=== PATIENT | male | born 1935 | race Caucasian/White ===

== ENCOUNTER 2020-07-05 10:47 | Inpatient (IN) | payer MEDICARE, SELFPAY ==
[2020-07-05] VITALS (21 sets, daily range): BP systolic 120–137; BP diastolic 63–84; PULSE 67–87; RESP 16–23; TEMP 36–36.7; O2SAT 96–100
--- NOTE | 2020-07-05 10:45 | RT.EKG_ITS ---
APPROVED REPORT Exam: Resting ECG Patient Location: E HR:70 bpm ECG Measurements Heart Rate 70 AXIS CA 243 P -14 QRSd 93 QRS -39 QT 419 T 2 QTc 465 Conclusion Sinus rhythm...normal P axis, V-rate 60- 99 Sinus pause...long R-R interval, normal QRSd Prolonged CA interval...CA >220, V-rate 50- 90 I have reviewed and interpreted ECG and agree with software generated interpretation.
--- NOTE | 2020-07-05 10:45 | DI.RAD_ITS ---
EXAM: XR PORTABLE CHEST AP CLINICAL HISTORY: syncope. TECHNIQUE: 2D digital imaging was performed. COMPARISON: No exams were available for comparison FINDINGS: Heart size is normal. The mediastinum is not widened. Lungs are clear. No infiltrates nor obvious pleural effusions. Subtle suggestion of a possible LAD coronary artery stent. IMPRESSION: No acute pulmonary findings on this single AP portable view of the chest.Possible left-sided coronary artery stent. DATA REPOSITORY: RADIATION DOSE DELIVERED:
[2020-07-05 11:14] LABS: Abs Immature Grans 0.03 10^3/uL (0.0-0.06); Absolute Basophil Count 0.03 10^3/uL (0.0-0.2); Absolute Eosinophil Count 0.15 10^3/uL (0.0-0.7); Absolute Lymphocyte Count 2.05 10^3/uL (1.2-3.4); Absolute Monocyte Count 0.73 10^3/uL (0.1-0.8); Basophils % 0.4; HCT 38.9 % (40.0-50.0); HGB 13.3 g/dL (13.5-17.5); Immature Grans % 0.4; Lymphocytes % 27.4; MCHC 34.2 % (32.0-36.0); MCV 93.7 fL (80-95); MPV 12.5 fL (8.0-11.0); Monocytes % 9.7; Neutrophils % 60.1; Nucleated RBC 0 %; Platelet Count 155 10^3/uL (130-400); RBC 4.15 10^6/uL (4.36-5.78); RDW-SD 44.8 fL; WBC 7.49 10^3/uL (4.4-10.8)
--- NOTE | 2020-07-05 11:22 | ED.GENADUL_ITS ---
Discharge Plan Discharge Details Chief Complaint: Chest Pain Admit Date/Time: 07/05/20 11:48 Admit Provider: Abdullahi Jackson Attending Provider: Abdullahi Jackson Primary Care Provider: Unknown,Unknown ED Provider: Sandi Cruz Medical Decision Making Patient does have mild elevation in LFTs, specifically no right upper quadrant tenderness, suspicion for cholecystitis Patient very low suspicion for pulmonary embolism, he is not hypoxic or tachycardic, he is not tachypneic and he has no history of same D-dimer negative BUN mildly elevated, dehydration play a role in his symptoms although he is not experiencing any vasovagal symptoms, his orthostatics were negative His chest pain has resolved, he is currently chest pain-free We will give dose of aspirin Chest x-ray does not show acute pathology, no obvious neurological involvement, alert and oriented x4 with stable vitals throughout his encounter, no abnormal telemetry dysrhythmia noted Patient agreeable to admission at this time Case discussed with Dr. Solomon, admitting hospitalist, agreeable to admission of this patient Differential Diagnosis Differential Diagnosis: Pulmonary embolism, angina, syncope, dysrhythmia Medical Records Medical records reviewed: Yes I reviewed the patient's medical records. Lab Data Lab results reviewed: Yes I reviewed the patient's lab results. ECG Data Prior ECG tracings: available for review HPI This 85-year-old gentleman with past medical history of hypertension, hyperlipidemia, diabetes presents with reports of syncope. He states he went grocery shopping this morning and felt quite well during his experience, however he was walking in the door and developed some pressure in his chest. He denies palpitations. He states that he felt weak and lowered himself to the ground. He was told by his that he passed out for 3 to 4 minutes. He states he was already on the ground when he believes this occurred. When he awoke, he felt well. He states that he did have a stress test he thinks that been 20 years. He denies any history of seizures or seizure-like activity witnessed. EMS states his blood sugar was 200. Denies any current chest discomfort. Did not take his medication prior to arrival. Has not had a syncope work-up in the past. General Date/Time Provider Initiated Documentation: 07/05/20 10:48 . Related Data Home Medications Medication Instructions Recorded Confirmed allopurinol 100 mg PO DAILY 07/05/20 07/05/20 amlodipine 5 mg PO HS 07/05/20 07/05/20 carbidopa-levodopa 1 tab PO Q4H 07/05/20 07/05/20 clopidogrel [Plavix] 75 mg PO DAILY 07/05/20 07/05/20 colchicine [Colcrys] 0.6 mg PO BID 07/05/20 07/05/20 dutasteride 0.5 mg PO DAILY 07/05/20 07/05/20 famotidine 20 mg PO BID 07/05/20 07/05/20 insulin detemir U-100 [Levemir 50 unit SUBCUT QPM 07/05/20 07/05/20 U-100 Insulin] insulin detemir U-100 [Levemir 65 unit SUBCUT QAM 07/05/20 07/05/20 U-100 Insulin] magnesium chloride 84 mg PO BID 07/05/20 07/05/20 metformin 500 mg PO BID 07/05/20 07/05/20 potassium chloride [Klor-Con M20] 20 meq PO BID 07/05/20 07/05/20 pravastatin 40 mg PO QHS 07/05/20 07/05/20 tamsulosin 0.4 mg PO DAILY 07/05/20 07/05/20 Allergies Allergy/AdvReac Type Severity Reaction Status Date / Time Penicillins Allergy Severe Skin Rash Unverified 07/05/20 12:09 General Stated Complaint: Chest Pain KARIN: 2 Review of Systems Narrative: Review of systems obtained x7 aside are indicated in HPI, specifically no seizure-like activity, vomiting, palpitations, shortness of PFSH Social History Smoking/Tobacco Use Status: Former Tobacco Use Smoking risk assessment performed?: Yes Alcohol Intake: current Alcohol Intake frequency: 0-2 drinks per day Alcohol type: wine Drug use: Never Substance use type: does not use Do you feel safe at home: Yes Do you feel safe in your relationship?: Yes Exam Const General: cooperative, comfortable and no acute distress HENMT Head: normal to inspection Mouth: oral mucosae normal Throat: uvula midline Eyes Pupils: PERRL EOM: EOM intact bilaterally Chest Chest: normal inspection of the chest Resp Effort & Inspection: normal respiratory effort Auscultation: clear to auscultation bilaterally Cardio Rate: regular rate Rhythm: regular rhythm GI Inspection: normal to inspection Other: No abdominal bruit or pulsatile mass, nontender abdominal exam Specifically no abdominal tenderness Back/Spine/Pelvis Back: no CVA tenderness Other: No visible evidence of trauma Skin General skin exam: no rashes or lesions noted Neuro General: patient alert and patient oriented x3 Cranial Nerves: CN's II-XI intact bilaterally Cognition: normal cognition Speech: speech normal Gait: normal gait Motor: muscle tone normal throughout Sensory Exam: no sensory deficits noted Other: GCS 15 Extrem Left upper extremity: normal to inspection Other: No calf tenderness or swelling bilaterally Course Vital Signs Vital signs: Vital Signs Temperature 36.6 C 07/05/20 10:52 Pulse 73 07/05/20 10:52 Respiratory Rate 18 07/05/20 10:52 Blood Pressure 122/64 07/05/20 10:52 Pulse Oximetry 100 07/05/20 10:52 Temperature 36.6 C 07/05/20 10:52 Temperature Source Temporal Artery Scan 07/05/20 10:52 Pulse 73 07/05/20 10:52 Respiratory Rate 18 07/05/20 10:59 Respiratory Effort Non-Labored 07/05/20 10:59 Respiratory Depth Normal 07/05/20 10:59 Respiratory Pattern Normal 07/05/20 10:59 Blood Pressure 122/64 07/05/20 10:52 Blood Pressure Position Sitting 07/05/20 10:52 Pulse Oximetry 100 07/05/20 10:52 Oxygen Delivery Method Room Air 07/05/20 10:52 Oxygen Flow Rate 0 07/05/20 10:52 Pain Level 0 07/05/20 10:52 Lab/Test Results Lab/Test Results: Laboratory Tests Range/Units 07/05/20 10:48 WBC (4.4-10.8) 10^3/uL 7.49 RBC (4.36-5.78) 10^6/uL 4.15 L Hgb (13.5-17.5) g/dL 13.3 L Hct (40.0-50.0) % 38.9 L MCV (80-95) fL 93.7 MCH (27.0-33.0) pg 32.0 MCHC (32.0-36.0) % 34.2 RDW (11.8-14.1) % 13.0 Plt Count (130-400) 10^3/uL 155 MPV (8.0-11.0) fL 12.5 H Immature Gran % 0.4 Neutrophils % 60.1 Lymphocytes % 27.4 Monocytes % 9.7 Eosinophils % 2.0 Basophils % 0.4 Nucleated RBC % % 0 Absolute Neutrophils (1.2-6.7) 10^3/uL 4.50 Absolute Lymphocytes (1.2-3.4) 10^3/uL 2.05 Absolute Monocytes (0.1-0.8) 10^3/uL 0.73 Absolute Eosinophils (0.0-0.7) 10^3/uL 0.15 Absolute Basophils (0.0-0.2) 10^3/uL 0.03
[2020-07-05 11:28] LABS: ALT 70 U/L (16-63); AST 46 U/L (15-37); Albumin 3.7 g/dL (3.4-5.0); Alkaline Phosphatase 118 U/L (46-116); Anion Gap 10.4 mmol/L (3-11); BUN 26 mg/dL (7-18); Bilirubin, Total 0.4 mg/dL (0.2-1.0); CO2 27.6 mmol/L (21.0-32.0); CREATININE 1.2 mg/dL (0.70-1.30); Calcium 9.2 mg/dL (8.5-10.1); Chloride 99 mmol/L (98-107); Estimated GFR 57.82 (mL/min/1.73m2); Glucose 238 mg/dL (74-106); Magnesium 2.1 mg/dL (1.8-2.4); Potassium 3.9 mmol/L (3.5-5.1); Sodium 137 mmol/L (136-145); Total Protein 7.6 g/dL (6.4-8.2); Troponin I < 0.05 ng/mL (<0.06)
[2020-07-05] MEDS: Normal Saline 500 ML IV (12:08)
[2020-07-05 12:09] LABS: Source Nasopharynx
[2020-07-05 12:26] LABS: D-Dimer 360 ng/mlFEU (<500)
[2020-07-05 12:55] LABS: COVID-19 PCR Negative (Negative); Influenza A PCR Negative (Negative); Influenza B PCR Negative (Negative); RSV PCR Negative (Negative)
--- NOTE | 2020-07-05 14:03 | HPE_ITS ---
Date of service: 07/05/20 Time of Service: 14:03 Assessment and Plan Assessment and plan (1) Syncope: Status: Chronic Assessment and plan: Admission for observation on telemetry. Check serial troponin levels. Check EEG in the morning. Obtain noncontrast CT scan of the head tonight. Obtain MRI and MRA of the brain and MR a of the cervical vessels in the morning. Set the patient up for 14-day Holter monitor upon discharge tomorrow. Obtain PT consult to evaluate functional status and safety for discharge home. Qualifiers: Syncope type: unspecified Qualified Code(s): R55 - Syncope and collapse (2) Essential hypertension: Status: Acute Assessment and plan: Continue current home medicines of amlodipine 5 mg nightly. Monitor blood pressure and orthostatics. (3) Insulin-requiring or dependent type II diabetes mellitus: Status: Acute Assessment and plan: Continue home dose of Levemir and add sliding scale insulin moderate dose. Monitor blood sugars before meals and at bedtime. (4) Parkinsonism: Status: Acute Assessment and plan: Continue current home dose of Sinemet. Qualifiers: Parkinsonism type: Parkinson's disease Qualified Code(s): G20 - Parkinson's disease History of Present Illness History of Present Illness Chief Complaint: Syncope Narrative: 85-year-old male with a history of parkinsonism, essential hypertension, hyperlipidemia, diabetes mellitus type 2 requiring insulin and previous TIAs presented via EMS from home after sustaining a syncopal spell witnessed by his . Patient states that he and his had gone shopping this morning and he felt well while they were out shopping but while walking into the doorway he went to put a jug of milk away and he noticed some chest pressure and felt very lightheaded and knew he was going to pass out so he sat the jug of milk down and grabbed a table and lowered himself to the ground before he passed out. Is unclear exactly how long he was unconscious but he believes it was only a matter of a minute or 2. When he awoke he felt well and had no chest pain or pressure no dyspnea. He denies any seizures or seizure-like activity although he states that he did lose control of his bowels because he felt the urge to defecate and his family would not let him up off the floor until EMS arrived. Upon arrival fingerstick blood sugar by EMS was 200. Patient states that many years ago he had dizzy spells in which she had an extensive work-up and says that they never found anything. He denies any previous syncopal spells. He denies any history of myocardial infarction or congestive heart failure but admits to having had TI As in the past. Diagnostic studies in the emergency department showed a chest x-ray that showed no acute pulmonary findings but there is some suggestion of possible coronary stent. Heart was not enlarged and there was no mediastinal widening. No CT of his head was performed. Labs performed emergency department included a CBC, D- dimer, CMP and troponin. Troponin was less than 0.05. No repeat troponin was performed. CMP demonstrated mildly elevated LFTs with an AST of 46, ALT 70, alkaline phosphatase 118 with a normal total bilirubin 0.4. Glucose was 238. BUN slightly elevated 26 with a creatinine 1.2. Electrolytes within normal limits. CBC showed a borderline anemia hemoglobin 13.3 g hematocrit 38.9% RBC count 4.1 million. Normal white cell count and differential. Normal platelet count. D-dimer is normal at 360. Patient is admitted to the hospital for further evaluation of syncope monitoring for any cardiac arrhythmias and to rule out stroke/TIA, seizure disorder. CT scan of the head without contrast to be done tonight tomorrow morning we will get an MRI and MRA of the brain and MRA of the neck. Echocardiogram is not available as the veterinary laboratory technician is out of bereavement leave. I will attempt [id number] ultrasound in the morning. We will monitor his heart rhythm for any dysrhythmias as well as monitoring his blood pressure. This may be some autonomic dysfunction secondary to his parkinsonism causing some orthostasis. Blood sugars will be monitored before meals and at bedtime with a insulin scale in addition to his Levemir. If he has no cardiac dysrhythmias and there is no acute neurologic findings on his CT or MRI we will have physical therapy evaluate his safety for discharge planning tomorrow afternoon. Review of Systems All systems reviewed & are unremarkable except as noted in HPI and below ENT Ears, Nose, Mouth, and Throat: Reports abnormal hearing Cardiovascular Cardiovascular: Reports as per HPI Respiratory Respiratory: Reports as per HPI Gastrointestinal Gastrointestinal: Reports as per HPI Genitourinary Genitourinary: Reports system reviewed and no additional complaints, except as documented Neurologic Neurologic: Reports as per HPI and Reports abnormal hearing [facility] Medical History (Updated 07/05/20 @ 19:23 by Abdullahi Jackson) BPH (benign prostatic hyperplasia) Essential hypertension Gout History of TIA (transient ischemic attack) Insulin-requiring or dependent type II diabetes mellitus Parkinsonism Surgical History (Updated 07/06/20 @ 15:22 by Abdullahi Jackson) History of phacoemulsification of cataract of both eyes with intraocular lens implantation History of vasectomy Social History Smoking/Tobacco Use Status: Former Tobacco Use Smoking risk assessment performed?: Yes Alcohol Intake: current Alcohol Intake frequency: 0-2 drinks per day Alcohol type: wine Drug use: Never Substance use type: does not use Do you feel safe at home: Yes Do you feel safe in your relationship?: Yes Meds Home Medications and Allergies Home Medications Medication Instructions Recorded Confirmed Type allopurinol 100 mg PO DAILY 07/05/20 07/05/20 History amlodipine 5 mg PO HS 07/05/20 07/05/20 History carbidopa-levodopa 1 tab PO Q4H 07/05/20 07/05/20 History clopidogrel [Plavix] 75 mg PO DAILY 07/05/20 07/05/20 History colchicine [Colcrys] 0.6 mg PO BID 07/05/20 07/05/20 History dutasteride 0.5 mg PO DAILY 07/05/20 07/05/20 History famotidine 20 mg PO BID 07/05/20 07/05/20 History insulin detemir U-100 [Levemir 50 unit SUBCUT QPM 07/05/20 07/05/20 History U-100 Insulin] insulin detemir U-100 [Levemir 65 unit SUBCUT QAM 07/05/20 07/05/20 History U-100 Insulin] magnesium chloride 84 mg PO BID 07/05/20 07/05/20 History metformin 500 mg PO BID 07/05/20 07/05/20 History potassium chloride [Klor-Con M20] 20 meq PO BID 07/05/20 07/05/20 History pravastatin 40 mg PO QHS 07/05/20 07/05/20 History tamsulosin 0.4 mg PO DAILY 07/05/20 07/05/20 History Allergies Allergy/AdvReac Type Severity Reaction Status Date / Time Penicillins Allergy Severe Skin Rash Unverified 07/05/20 12:09 Exam Narrative Exam Narrative: Elderly male sitting up in his chair alert and oriented person place time circumstance watching TV. Little bit hard of hearing but does not have a hearing aids in place. HEENT normal movement of his palate and tongue. No facial asymmetry no dysarthric speech. Full extraocular motions intact. Pupils with anisocoria secondary to previous cataract surgery. Visual field grossly intact to confrontation. Fine visual acuity was not tested. Ear canals are clear of wax TMs intact no erythema or bulging no hemotympanum. Nares moist no epistaxis Neck supple nontender no JVD no thyromegaly no cervical lymphadenopathy. He has bilateral carotid bruits. Carotid pulses are intact but the right is slightly weaker than the left. Lungs are clear to auscultation Heart regular rate and rhythm with a harsh crescendo decrescendo systolic murmur grade 3/6 over the aortic outflow tract and a high-pitched musical-like systolic murmur over the apex with no thrill or heave Abdomen is obese soft nontender no palpable masses Lower extremities without peripheral cyanosis or edema. Pedal pulses intact. Neuro exam grossly intact no facial asymmetry no dysarthric speech she is alert and oriented person place time circumstance he has no focal motor deficits in either upper or lower extremities. He has good handgrip strength. No cogwheel rigidity no tremors. Babinski's are absent bilaterally. Sensory exam grossly intact in both upper ex lower extremities. Results Labs Result diagrams: 07/06/20 06:40 07/06/20 06:40 Labs: Laboratory Results - last 24 hr 07/05/20 07/05/20 07/05/20 10:35 10:35 10:48 WBC 7.49 RBC 4.15 L Hgb 13.3 L Hct 38.9 L MCV 93.7 MCH 32.0 MCHC 34.2 RDW 13.0 Plt Count 155 MPV 12.5 H Immature Gran % 0.4 Neutrophils % 60.1 Lymphocytes % 27.4 Monocytes % 9.7 Eosinophils % 2.0 Basophils % 0.4 Nucleated RBC % 0 Absolute Neutrophils 4.50 Absolute Lymphocytes 2.05 Absolute Monocytes 0.73 Absolute Eosinophils 0.15 Absolute Basophils 0.03 D-Dimer 360 Sodium 137 Potassium 3.9 Chloride 99 Carbon Dioxide 27.6 Anion Gap 10.4 BUN 26 H Creatinine 1.2 Estimated GFR/1.73 m2 57.82 Glucose 238 H Calcium 9.2 Magnesium 2.1 Total Bilirubin 0.4 AST 46 H ALT 70 H Alkaline Phosphatase 118 H Troponin I < 0.05 Total Protein 7.6 Albumin 3.7 COVID-19 Source SARS-CoV-2 (PCR) Influenza Type A (PCR) Influenza Type B (PCR) RSV (PCR) 07/05/20 12:00 WBC RBC Hgb Hct MCV MCH MCHC RDW Plt Count MPV Immature Gran % Neutrophils % Lymphocytes % Monocytes % Eosinophils % Basophils % Nucleated RBC % Absolute Neutrophils Absolute Lymphocytes Absolute Monocytes Absolute Eosinophils Absolute Basophils D-Dimer Sodium Potassium Chloride Carbon Dioxide Anion Gap BUN Creatinine Estimated GFR/1.73 m2 Glucose Calcium Magnesium Total Bilirubin AST ALT Alkaline Phosphatase Troponin I Total Protein Albumin COVID-19 Source Nasopharynx SARS-CoV-2 (PCR) Negative Influenza Type A (PCR) Negative Influenza Type B (PCR) Negative RSV (PCR) Negative Last Vital Signs Temp 36 C L 07/05/20 12:42 Pulse 76 07/05/20 12:42 Resp 16 07/05/20 12:42 BP 128/84 07/05/20 12:42 Pulse Ox 98 07/05/20 12:42 COVID-19 Screening Have you, or household traveled for leisure in last 14 days?: No Had IN PERSON contact w/suspected or confirmed C-19 person: No
--- NOTE | 2020-07-05 14:22 | CHAPLAIN ---
Magan was sitting up in his chair when I visited. He asked me if I knew the results of his test and a let him know that I don't know anything about his medical issues. Magan lives in [place] and has talked to his on the phone. I explained my role and offered support.
[2020-07-05] MEDS: Carbidopa 25/Levodopa 100 TAB PO ×2 (16:43→20:15)
[2020-07-05] MEDS: Insulin Aspart 300 UNITS/3 ML PEN SC ×2 (17:03→17:04)
--- NOTE | 2020-07-05 18:16 | INITIAL_ITS ---
- If Service Date Differs Date of service: 07/05/20 Time of Service: 18:16 Care Management Initial Assess REASON FOR HOSPITALIZATION:: Syncope. PAST MEDICAL HISTORY/PAST SURGICAL HISTORY:: Medical History: BPH (benign prostatic hyperplasia), Essential hypertension, Gout, History of TIA (transient ischemic attack),. Insulin-requiring or dependent type II diabetes mellitus, and. Parkinsonism. Surgical History: History of phacoemulsification of cataract of both eyes with intraocular lens implantation. PREVIOUS FUNCTIONAL STATUS/SOCIAL/FAMILY SUPPORTS:: Magan lives in [place] with Elva, his of 38 years. Together they have a total of 7 children; 3 are hers from a previous marriage, 3 are his from his first marriage, and together they adopted 1 daughter, Candice, who is now 22 years old and lives in [place], [place]. Magan states the other 6 children reside throughout the [facility], but he's unable to say where. 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 He now occupies his time with cooking, cleaning, watching television, and doing yardwork. 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 Magan states he believes he failed the test because it was on a computer and he does not know how to use computers. His , who is supportive of him, now does all of the driving. Magan reports being independent with his ADLs at baseline. CURRENT FUNCTIONAL STATUS:: Magan is sitting in a chair watching television when CM comes to meet with him. He is pleasant and talkative. He shares he is 1 of 11 children and states once he is gone there will be no one left in his family. He shares his surname will live on in his children and nieces and nephews. ADVANCE DIRECTIVES:: None on file; Magan believes he has a completed Advance Directives at home. Has patient been provided with info about the portal/API?: Yes Did the patient sign up for the portal?: No (Declines) CODE STATUS:: Full Code INSURANCE COVERAGE / FINANCIAL ISSUES:: Patient believes he has Medicare and Medicaid. This will need to be confirmed with his , as Magan does not have the insurance cards with him. CURRENT HOME/COMMUNITY SERVICES/EQUIPMENT:: Magan reports his has a shower chair. He denies having any medical equipment of his own and has no in-home or community services. PRIMARY CARE PHYSICIAN:: Rahel Merino MD ([facility]). POTENTIAL DISCHARGE NEEDS:: Follow up appointment with PCP. PATIENT/FAMILY EDUCATION NEEDS:: Discharge instructions, limitations, follow up plan, including Ask Me Three and self management. ANTICIPATED BARRIERS TO DISCHARGE:: No anticipated barriers at this time. TRANSPORTATION:: Via private vehicle with his , Elva. PLAN:: Anticipate Magan will be discharged home with no new services when medically cleared by provider. He will follow up with his PCP and discharge plan of care as directed. His , Evla, will drive him home via private vehicle when ready. CM will continue to support patient and discharge planning considerations.
--- NOTE | 2020-07-05 19:31 | DI.CT_ITS ---
EXAM: CT HEAD - STROKE PROTOCOL CLINICAL HISTORY: Syncope. TECHNIQUE: Imaging Protocol: Axial computed tomography images with coronal and sagittal reformatted images were created and reviewed COMPARISON: No exams were available for comparison FINDINGS: Ventricles and Extra axial spaces: Normal in size and morphology for the patient's age. Hemorrhage: None. Cerebral parenchyma: Mild atrophy consistent with the patient's age. Mild white matter changes of sm all vessel disease. Midline shift: None. Brainstem/Cerebellum: Normal. Calvarium: Normal. Visualized Paranasal sinuses/Mastoids: Clear. Soft Tissues: Unremarkable. IMPRESSION: No acute intracranial process. RADIATION DOSE DELIVERED: 765.2mGy.cm Total DLP DATA REPOSITORY: All CT scans at this facility are submitted to the National Radiology Data Registry (NRDR) Dose Index Registry (DIR) with the [employer] (A[employer]). RADIATION OPTIMIZATION: All CT scans at this facility use at least one of these dose optimization te chniques: automated exposure control; mA and/or kV adjustment per patient size (includes targeted exa ms where dose is matched to clinical indication); or iterative reconstruction.
--- NOTE | 2020-07-05 19:43 | DI.VRAD_ITS ---
PROCEDURE INFORMATION: Exam: CT Head Without Contrast Exam date and time: 07/05/2020 7:26 PM Age: 85 years old Clinical indication: Other: Syncope TECHNIQUE: Imaging protocol: Computed tomography of the head without contrast. Total images: 1028 Radiation optimization: All CT scans at this facility use at least one of these dose optimization techniques: automated exposure control; mA and/or kV adjustment per patient size (includes targeted exams where dose is matched to clinical indication); or iterative reconstruction. COMPARISON: No relevant prior studies available. FINDINGS: Brain: There is moderate diffuse atrophy and white matter disease. No intra or extra-axial bleed. No edema or mass effect. Cerebral ventricles: No hydrocephalus. Basal cisterns are patent. Bones/joints: No significant bony abnormality. No fracture. Paranasal sinuses: Minimal mucosal thickening. No fluid levels. Mastoid air cells: Mastoid air cells are clear. Orbital cavity: Unremarkable. Vasculature: There is significant atherosclerotic calcification involving the distal vertebral, basilar and cavernous carotid segments. Soft tissues: Unremarkable. IMPRESSION: 1. No acute intracranial abnormality. 2. Atrophy and white matter disease. Dictated and Authenticated by: Gianfranco Seymour MD. Ordering:[facility] Renetta Fernando MD
[2020-07-05 19:48] LABS: Troponin I 0.21 ng/mL (<0.06)
[2020-07-05] MEDS: Magnesium Lactate-SR 84 MG TABCR PO (20:15)
[2020-07-05] MEDS: metFORMIN 500 MG TAB PO (20:15)
[2020-07-05] MEDS: Potassium Chloride 20 MEQ TABCR PO (20:15)
[2020-07-05] MEDS: Aspirin 81 MG CHEW 162 MG CH (20:20)
[2020-07-05] MEDS: Atorvastatin 40 MG TAB 80 MG PO (20:27)
[2020-07-05] MEDS: Colchicine 0.6 MG TAB PO (20:29)
[2020-07-05 20:38] LABS: PTT Activated 23.4 sec (21.0-27.5)
[2020-07-05] MEDS: amLODIPine 5 MG TAB PO (21:28)
[2020-07-05] MEDS: Normal Saline Flush 10 ML SYR IVP (21:43)
[2020-07-06] VITALS (10 sets, daily range): BP systolic 116–158; BP diastolic 65–79; PULSE 67–80; RESP 16–22; TEMP 36.2–36.8; O2SAT 96–98
--- NOTE | 2020-07-06 00:45 | RT.EKG_ITS ---
APPROVED REPORT Exam: Resting ECG Patient Location: I HR:71 bpm ECG Measurements Heart Rate 71 AXIS KY 213 P 11 QRSd 96 QRS -35 QT 399 T 155 QTc 434 Conclusion Sinus arrhythmia...V-rate 51- 84, variation>10% Atrial premature complex...SV complex w/ short R-R interval Borderline prolonged KY interval...KY >212, V-rate 50- 90 Left axis deviation...QRS axis (-30,-90) Nonspecific T abnormalities, lateral leads...T <-0.10mV, I aVL V5 V6
[2020-07-06] MEDS: Carbidopa 25/Levodopa 100 TAB PO ×7 (01:18→23:05)
[2020-07-06 04:29] LABS: PTT Activated 49.8 sec (21.0-27.5)
[2020-07-06 06:53] LABS: Abs Immature Grans 0.04 10^3/uL (0.0-0.06); Absolute Basophil Count 0.03 10^3/uL (0.0-0.2); Absolute Eosinophil Count 0.21 10^3/uL (0.0-0.7); Absolute Lymphocyte Count 1.96 10^3/uL (1.2-3.4); Absolute Monocyte Count 0.58 10^3/uL (0.1-0.8); Absolute Neutrophil Count 4.23 10^3/uL (1.2-6.7); Basophils % 0.4; HCT 36.4 % (40.0-50.0); HGB 12.4 g/dL (13.5-17.5); Immature Grans % 0.6; Lymphocytes % 27.8; MCH 31.7 pg (27.0-33.0); MCHC 34.1 % (32.0-36.0); MCV 93.1 fL (80-95); MPV 12.3 fL (8.0-11.0); Monocytes % 8.2; Nucleated RBC 0 %; Platelet Count 134 10^3/uL (130-400); RBC 3.91 10^6/uL (4.36-5.78); RDW 12.9 % (11.8-14.1); WBC 7.05 10^3/uL (4.4-10.8)
--- NOTE | 2020-07-06 07:00 | DI.US_ITS ---
EXAM: US CAROTID CLINICAL HISTORY: Syncope, history of TIA. TECHNIQUE: Ultrasound carotids performed using grayscale, color-flow, and spectral Doppler imaging. COMPARISON: No exams were available for comparison FINDINGS: RIGHT CAROTID ARTERY: Plaque: Ycsb-[id number]-[id number] calcific plaque at the common carotid bifurcation and proximal internal and external carotid arteries. Visually mild stenosis. Velocity elevation: None. LEFT CAROTID ARTERY: Plaque: Cpbw-eu-cwwvaaxq plaque in the left common carotid bulb and proximal internal and external ca rotid arteries. Visually mild stenosis. Velocity elevation: None. VERTEBRAL ARTERIES: Antegrade flow. Measurements: R Bulb: 45cm/s PS / 12.2cm/s ED R CCA: 60.4cm/s PS / 9.6cm/s ED R ECA: 86.1cm/s PS / 10.9cm/s ED R ICA Prox: 70.7cm/s PS /23.1cm/s ED R ICA Mid: 64.9cm/s PS / 25.1cm/s ED R ICA Distal: 83.6cm/s PS /22.5cm/s ED R Vert: 46.3cm/s PS / 19.3cm/s ED R SVR: 1.14 R DVR: 1.74 L Bulb: 45cm/s PS /8.4cm/s ED L CCA: 49.5cm/s PS / 15.4cm/s ED L ECA: 73.9cm/s PS /12.2cm/s ED L ICA Prox:70.7cm/s PS / 21.9cm/s ED L ICA Mid: 70.7cm/sPS / 23.1cm/s ED L ICA Distal: 73.3cm/s PS / 28.3cm/s ED L Vert: 40.5cm/s PS / 10.9cm/s ED L SVR: 1.1 L DVR: 2.1 IMPRESSION: Ilzo-nm-xgqddykh bilateral calcific plaque in the common carotid bulbs and internal and external riley tid arteries. No evidence for hemodynamically significant carotid stenosis. Criteria for Carotid Stenosis: Normal: ICA PSV <125 cm/s no plaque or intimal thickening is visible. <50% stenosis: ICA PSV <125 cm/s and plaque or intimal thickening is visible. 50-69% stenosis: ICA PSV is 125-250 cm/s and plaque is visible. >70% stenosis to near occlusion: ICA PSV >250 cm/s with visible plaque and luminal narrowing. DATA REPOSITORY:
--- NOTE | 2020-07-06 07:00 | DI.MRI_ITS ---
EXAM: MR BRAIN WO CLINICAL HISTORY: Syncope TECHNIQUE: Multiplanar multisequence MRI of the brain was performed. COMPARISON: CT CT HEAD - STROKE PROTOCOL from 07/05/[address] HEAD - STROKE PROTOCOL from 07/05/2020 FINDINGS: There is yncm-cp-exrpalrp cerebral atrophy. There are prominent perivascular spaces in the basal inna glia. There are multiple small foci of high signal in the white matter consistent with sequela of ch ronic microvascular ischemia. No area of restricted diffusion is seen. There is no evidence acute h emorrhage or mass. The ventricles are normal in size for the degree of atrophy. The susceptibility weighted images show small show a small focus of low signal in the right mid brain consistent with he mosiderin. Orbits, sinuses, mastoid air cells and pituitary are unremarkable. The vascular flow voi ds appear intact. IMPRESSION: Atrophy and white matter changes of small vessel disease. Question of a small focus of old hemorrhag e in the left midbrain. DATA REPOSITORY:
--- NOTE | 2020-07-06 07:00 | DI.MRI_ITS ---
CLINICAL HISTORY: Syncope, history of TIA. TECHNIQUE: 3D uhgg-tj-nbdvwi study was performed.. COMPARISON: None. FINDINGS: Carotid Arteries: Petrous: Normal. Cavernous: Normal. Cerebral: Normal. Middle Cerebral Arteries: Right: No aneurysm or significant stenosis. Left: No aneurysm or significant stenosis. Anterior Cerebral Arteries: Right: No aneurysm or significant stenosis. Left: No aneurysm or significant stenosis. Vertebral Arteries: Right: No aneurysm or significant stenosis. Left: No aneurysm or significant stenosis. . Basilar Artery: No aneurysm or significant stenosis. Small Vessels: No evidence of beading. A small focus of low signal is seen in the right upper diana to mid brain consistent with a small focu s of remote hemorrhage or calcification. IMPRESSION: Normal MRA examination of the [place]. DATA REPOSITORY:
--- NOTE | 2020-07-06 07:00 | DI.MRI_ITS ---
EXAM: MR ANGIO NECK WO CLINICAL HISTORY: Syncope, history of TIA. TECHNIQUE: Multiplanar multisequence MRA of the Neck was performed. COMPARISON: No exams were available for comparison FINDINGS: Common Carotid: Right: No dissection, occlusion or significant stenosis. Left: No dissection, occlusion or significant stenosis. External Carotid: Right: No evidence of occlusion or significant stenosis. Left: No evidence of occlusion or significant stenosis. Internal Carotid: Right: No dissection, occlusion or significant stenosis. Left: No dissection, occlusion or significant stenosis. Vertebral Artery: Right: No dissection, occlusion or significant stenosis. Left: No dissection, occlusion or significant stenosis. The visualized paraspinal soft tissues are unremarkable. IMPRESSION: No evidence of dissection, occlusion or significant stenosis. DATA REPOSITORY:
[2020-07-06 07:10] LABS: Anion Gap 9.2 mmol/L (3-11); BUN 19 mg/dL (7-18); CO2 25.8 mmol/L (21.0-32.0); Calcium 8.7 mg/dL (8.5-10.1); Chloride 103 mmol/L (98-107); Glucose 132 mg/dL (74-106); Potassium 3.6 mmol/L (3.5-5.1); Sodium 138 mmol/L (136-145)
[2020-07-06 07:15] LABS: Troponin I 0.16 ng/mL (<0.06)
[2020-07-06 07:42] LABS: ALT 15 U/L (16-63); AST 35 U/L (15-37); Albumin 3.3 g/dL (3.4-5.0); Alkaline Phosphatase 91 U/L (46-116); Bilirubin, Direct 0.15 mg/dL (0.00-0.20); Bilirubin, Total 0.4 mg/dL (0.2-1.0); Total Protein 6.7 g/dL (6.4-8.2)
[2020-07-06 07:43] LABS: Hemoglobin A1C 7.4 % (<5.7)
[2020-07-06] MEDS: Famotidine 20 MG TAB PO (10:15)
[2020-07-06] MEDS: Tamsulosin 0.4 MG CAPCR PO (10:15)
[2020-07-06] MEDS: Aspirin E.C. 81 MG TABEC PO (10:15)
[2020-07-06] MEDS: Potassium Chloride 20 MEQ TABCR PO ×2 (10:15→21:04)
[2020-07-06] MEDS: Allopurinol 100 MG TAB PO (10:15)
[2020-07-06] MEDS: metFORMIN 500 MG TAB PO ×2 (10:15→21:03)
[2020-07-06] MEDS: Clopidogrel 75 MG TAB PO (10:15)
[2020-07-06] MEDS: Magnesium Lactate-SR 84 MG TABCR PO ×2 (10:15→21:04)
[2020-07-06] MEDS: Metoprolol 12.5 MG TAB PO ×2 (10:15→21:03)
[2020-07-06] MEDS: Colchicine 0.6 MG TAB PO ×2 (10:15→21:03)
[2020-07-06] MEDS: Insulin Aspart 300 UNITS/3 ML PEN SC ×2 (11:51)
--- NOTE | 2020-07-06 15:02 | CMPROGNOTE_ITS ---
- If Service Date Differs Date of service: 07/06/20 Time of Service: 15:02 Care Management Progress Note S/O: Magan was sitting up in a chair when CM met with him. He appeared to be in good spirits and was pleasant and friendly in interactions. Magan talked a bit about his past and about living in [place]. He stated that some of his children were raised there and some in [place]. He and his have been in [place] for close to 40 years. He proudly stated they don't call me a flatlander anymore. Magan stated that his has some health issues but is doing OK. He informed CM that he does not feel he will need any services at home. He also shared that he is hoping to be discharged later today. A: Magan is an 85 year old man admitted on 07/05/20 with syncope P:Anticipate Magan will be discharged home with no new services when medically cleared by provider. He will follow up with his PCP and discharge plan of care as directed. His , Elva, will drive him home via private vehicle when ready. CM will continue to support patient and discharge planning considerations
--- NOTE | 2020-07-06 15:07 | PDOC.EEG ---
Neurology EEG EEG: [facility] Department of Neurology INPATIENT EEG REPORT Date of Recordin07/06/20 Interpreting Physician: Dr. Victoria Martin Reason for study: Mr. Esquivel is an 85 year-old man who was admitted after a spell concerning for seizure vs syncope. Current Medications: Current Medications Acetaminophen (Acetaminophen 325 Mg Tab) 325 - 650 mg PO Q4H PRN PRN Al Hydrox/Mg Hydrox/Simethicone (Mylanta Suspension 30 Ml Cup) 30 ml PO Q2H PRN PRN Allopurinol (Allopurinol 100 Mg Tab) 100 mg PO DAILY [facility] Last Admin: 07/06/20 10:15 Dose: 100 mg Documented by: Amlodipine Besylate (Amlodipine 5 Mg Tab) 5 mg PO HS [facility] Last Admin: 07/05/20 21:28 Dose: 5 mg Documented by: Aspirin (Aspirin E.C. 81 Mg Tabec) 81 mg PO DAILY [facility] Last Admin: 07/06/20 10:15 Dose: 81 mg Documented by: Atorvastatin Calcium (Atorvastatin 40 Mg Tab) 80 mg PO QPM [facility] Last Admin: 07/05/20 20:27 Dose: 80 mg Documented by: Carbidopa/Levodopa (Carbidopa 25/Levodopa 100 Tab) 1 tab PO Q4H [facility] Last Admin: 07/06/20 13:29 Dose: 1 tab Documented by: Clopidogrel Bisulfate (Clopidogrel 75 Mg Tab) 75 mg PO DAILY [facility] Last Admin: 07/06/20 10:15 Dose: 75 mg Documented by: Colchicine (Colchicine 0.6 Mg Tab) 0.6 mg PO BID [facility] Last Admin: 07/06/20 10:15 Dose: 0.6 mg Documented by: Dextrose (Glucose 40% Oral Solution 15 Gm/37.5 Gm Tube) 0 gm PO DIRECTED PRN Dextrose/Water (Dextrose 50%-Water 25 Gm/50 Ml Syr) 0 gm IVP DIRECTED PRN Dimethicone/Zinc Oxide (Elis Protect Cream 142 Gm Tube) 0 gm TP PRN PRN Docusate Sodium (Docusate Sodium 100 Mg Cap) 100 mg PO TID PRN PRN Dutasteride (Dutaseride 0.5 Mg Cap) 0.5 mg PO DAILY [facility] Last Admin: 07/06/20 10:15 Dose: 0.5 mg Documented by: Famotidine (Famotidine 20 Mg Tab) 20 mg PO DAILY [facility] Last Admin: 07/06/20 10:15 Dose: 20 mg Documented by: Sodium Chloride (Saline 500ml Bag) 500 mls @ 0 mls/hr IV PRN PRN Heparin Sodium (Porcine) () 25,000 units in 250 mls @ 0 mls/hr IV INFUSION [facility]; Protocol Last Titration: 07/06/20 08:27 Dose: 0 units/hr, 0 mls/hr Documented by: IV Miscellaneous Supplies (Iv Access) 1 each IV DIRECTED [facility] Insulin Aspart (Insulin Aspart 300 Units/3 Ml Pen) 0 units SC 0800,1200,1700 [facility]; Protocol Last Admin: 07/06/20 11:51 Dose: 4 units Documented by: Insulin Aspart (Insulin Aspart 300 Units/3 Ml Pen) 0 units SC AC [facility] Last Admin: 07/06/20 11:51 Dose: 3 units Documented by: Insulin Detemir (Insulin Detemir 300 Units/3 Ml Pen) 50 units SC QPM [facility] Last Admin: 07/05/20 20:29 Dose: 50 units Documented by: Insulin Detemir (Insulin Detemir 300 Units/3 Ml Pen) 65 units SC QAM [facility] Last Admin: 07/06/20 10:14 Dose: 65 units Documented by: Magnesium (Magnesium Lactate-Sr 84 Mg Tabcr) 84 mg PO BID [facility] Last Admin: 07/06/20 10:15 Dose: 84 mg Documented by: Magnesium Hydroxide (Milk Of Magnesia 30 Ml Cup) 30 ml PO DAILY PRN PRN Metformin HCl (Metformin 500 Mg Tab) 500 mg PO BID [facility] Last Admin: 07/06/20 10:15 Dose: 500 mg Documented by: Metoprolol Tartrate (Metoprolol 12.5 Mg Tab) 12.5 mg PO BID [facility] Last Admin: 07/06/20 10:15 Dose: 12.5 mg Documented by: Polyethylene Glycol (Polyethylene Glycol 3350 17 Gm Packet) 17 gm PO DAILY PRN PRN PRN Reason: Constipation Potassium Chloride (Potassium Chloride 20 Meq Tabcr) 20 meq PO BID [facility] Last Admin: 07/06/20 10:15 Dose: 20 meq Documented by: Sodium Chloride (Normal Saline Flush 10 Ml Syr) 0 ml IVP PRN PRN Last Admin: 07/05/20 21:43 Dose: 10 ml Documented by: Tamsulosin HCl (Tamsulosin 0.4 Mg Capcr) 0.4 mg PO DAILY [facility] Last Admin: 07/06/20 10:15 Dose: 0.4 mg Documented by: METHODS: A 21 channel digitized electroencephalogram was performed in the [facility] Med/Surg Floor or ICU. The 10/20 international system of electrode placement was used and bipolar and referential electrode montages were recorded. In addition to EEG the patient was monitored for EKG and lateral/vertical eye movements. Activation procedures of photic stimulation and hyperventilation were performed if applicable. Video was used during activation procedures and during events where applicable. The duration of the recording was 30 minutes. DESCRIPTION OF EEG: The patient was noted to be awake and drowsy during the recording. During maximal wakefulness a 9-Hz posterior background rhythm was present which was well-modulated, symmetrical, reactive to eye opening, and of moderate voltage. With eye opening the background activity changed to a low voltage mixture of alpha, beta, and occasional theta range frequencies. Faster frequencies were present in the bilateral anterior head regions. There was a normal anterior-posterior voltage gradient. During drowsiness, there was attenuation of the posterior dominant background rhythm and vertex waves. Stage II sleep was present with symmetrical sleep spindles, K-complexes, and vertex waves. Activating Procedures: Photic stimulation was performed which produced a symmetrical posterior driving response at various flash frequencies. Hyperventilation was not performed. EKG: EKG revealed normal sinus rhythm/sinus bradycardia. INTERPRETATION: This EEG is normal during the awake and sleep states as well as during photic stimulation. PRIOR EEG: none CLINICAL CORRELATION: No focal regions of cerebral dysfunction or epileptiform activity was present. Epilepsy remains a clinical diagnosis and a normal EEG does not rule out epilepsy. Clinical correlation is advised. Victoria Martin MD
--- NOTE | 2020-07-06 15:17 | W.PM.PROGNOT ---
Date of Service Date of service: 07/06/20 Time of Service: 15:17 Assessment and Plan Assessment and plan (1) NSTEMI (non-ST elevated myocardial infarction): Status: Acute Assessment and plan: Transient rise in his troponin which peaked at 0.21 and is now down to 0.16. Patient remains pain-free and denies any dyspnea. We will repeat his troponin in the morning to ensure that its return to normal and obtain a proBNP along with a follow-up BMP. Continue dual antiplatelet therapy with Plavix and aspirin along with high-dose atorvastatin and heparin drip for 48 hours. Cardiology referral and cardiac event recorder upon discharge. Titrate Lopressor as tolerated. (2) Syncope: Status: Chronic Assessment and plan: No evidence for seizure or CVA. He is not having orthostatic hypotension. Based on the history obtained from his I suspect that he had a cardiac arrhythmic event. We will continue with Lopressor as tolerated and monitor him for another 24 to 36 hours while he completes his heparin therapy. He had a troponin leak but I do not believe that he had a plaque rupture causing any significant myocardial infarct. I think this is a type II NSTEMI and its a question of whether an arrhythmic event caused the troponin leak or he had an NSTEMI causing the arrhythmia. I think he should be maintained on dual antiplatelet therapy with Plavix and aspirin along with high-dose statin currently on atorvastatin 80 mg which was uptitrated from his home dose of Pravachol. He should continue heparin for 48 hours. A formal echocardiogram should be done on Thursday and I think upon discharge she should have a cardiac event recorder and a referral to a restoration ecologist. He may need to see an EP restoration ecologist depending on what is found on further monitoring. His goes to Dr. Adis Estes at [facility] in [facility]. I think would be appropriate to make cardiology referral to the cardiology group in [facility]. In the event that he needs acute hospital hospital transfer one should try to reach out to the [facility] in [place]. At present time patient's would like him to be a full code. However the patient is not so sure that he would want to be on life support in the event of a cardiopulmonary arrest. He and his will talk it over but at the present time he remains a full code. Patient himself does not wish to but he also does not want to be on a ventilator and prolong life support. Qualifiers: Syncope type: unspecified Qualified Code(s): R55 - Syncope and collapse (3) Essential hypertension: Status: Acute Assessment and plan: Continue amlodipine 5 mg daily which he was on at home. Continue Lopressor 12.5 mg p.o. twice daily. If he has further arrhythmias I would recommend up titration of his Lopressor dose. 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 (5) Parkinsonism: Status: Acute Assessment and plan: Continue home dose of Sinemet. Qualifiers: Parkinsonism type: Parkinson's disease Qualified Code(s): G20 - Parkinson's disease (6) BPH (benign prostatic hyperplasia): Status: Chronic Assessment and plan: Continue home dose of Avodart Subjective Subjective Interval history since last seen: I spoke with the patient's and obtain more information regarding the events leading to his syncope. Apparently patient had been complaining of some chest pressure just prior to passing out. Patient was found down at home by his family who was there at the time of his syncopal event although they did not witness it but they heard him go down there when the and his daughter checked on him they found him to not be breathing and he appeared to be cyanotic and they could not find a pulse. The patient's states that the daughter called for EMS and the tried to revive him rolling him over in the recovery position and she thumped his back several times until he came around. The reports that he was out for approximately 6 minutes total. She is certain that the patient did not have a pulse as she said that both she and the daughter checked him. This is not the information that the emergency room documented nor the information given to me when I admitted him yesterday afternoon. Patient has no recollection of that but he does recall feeling lightheaded and having chest discomfort and he states that he eased himself down to the ground. Patient had a noncontrast CT scan of his head last night which was not originally done through the ER but ordered by myself last night. This demonstrated no acute intracranial process. Cerebral parenchyma showed mild atrophy consistent with his age and mild white matter changes of small vessel disease. There is no skull fracture. Today he underwent MRI of the brain and MRA of the brain as well as cervical vessels and he had a carotid ultrasound. MRI of the brain shows atrophy and white matter changes consistent with small vessel disease and a questionable area of a small focus of old hemorrhage in the left midbrain. MRI of the brain showed normal examination of the [place]. MRA of the cervical vessels showed no evidence of dissection or occlusion or stenosis. Carotid ultrasound showed mild to moderate bilateral calcific plaques in the common carotid bulbs and internal and external carotid arteries with no hemodynamically significant stenosis. EEG was performed and showed no epileptiform activity. Telemetry overnight has demonstrated sinus arrhythmia with notched P waves, PACs and PVCs including ventricular couplets. There were no runs of ventricular tachycardia. Exam Narrative Exam Narrative: Elderly male who is alert and oriented person place time circumstance sitting up watching TV. Neck reveals bilateral carotid bruits is previously noted on admission H&P. Lungs are clear Heart is regular with a harsh crescendo decrescendo systolic murmur over the aortic outflow tract as well as a musically harsh systolic murmur over the apex. Objective Last Vital Signs Temp 36.2 C L 07/06/20 10:59 Pulse 70 07/06/20 10:59 Resp 20 07/06/20 10:59 BP 142/74 H 07/06/20 10:59 Pulse Ox 98 07/06/20 10:59 Laboratory Results - last 24 hr 07/05/20 07/05/20 07/05/20 13:48 19:08 20:22 WBC RBC Hgb Hct MCV MCH MCHC RDW Plt Count MPV Immature Gran % Neutrophils % Lymphocytes % Monocytes % Eosinophils % Basophils % Nucleated RBC % Absolute Neutrophils Absolute Lymphocytes Absolute Monocytes Absolute Eosinophils Absolute Basophils APTT 23.4 Sodium Potassium Chloride Carbon Dioxide Anion Gap BUN Creatinine Estimated GFR/1.73 m2 Glucose Hemoglobin A1c Calcium Total Bilirubin Conjugated Bilirubin AST ALT Alkaline Phosphatase Troponin I Cancelled 0.21 H* Total Protein Albumin 07/06/20 07/06/20 07/06/20 03:50 06:40 06:40 WBC 7.05 RBC 3.91 L Hgb 12.4 L Hct 36.4 L MCV 93.1 MCH 31.7 MCHC 34.1 RDW 12.9 Plt Count 134 MPV 12.3 H Immature Gran % 0.6 Neutrophils % 60.0 Lymphocytes % 27.8 Monocytes % 8.2 Eosinophils % 3.0 Basophils % 0.4 Nucleated RBC % 0 Absolute Neutrophils 4.23 Absolute Lymphocytes 1.96 Absolute Monocytes 0.58 Absolute Eosinophils 0.21 Absolute Basophils 0.03 APTT 49.8 H D Sodium 138 Potassium 3.6 Chloride 103 Carbon Dioxide 25.8 Anion Gap 9.2 BUN 19 H D Creatinine 1.0 Estimated GFR/1.73 m2 >= 60.00 Glucose 132 H D Hemoglobin A1c Calcium 8.7 Total Bilirubin 0.4 Conjugated Bilirubin 0.15 AST 35 ALT 15 L Alkaline Phosphatase 91 Troponin I 0.16 H* Total Protein 6.7 Albumin 3.3 L 07/06/20 06:40 WBC RBC Hgb Hct MCV MCH MCHC RDW Plt Count MPV Immature Gran % Neutrophils % Lymphocytes % Monocytes % Eosinophils % Basophils % Nucleated RBC % Absolute Neutrophils Absolute Lymphocytes Absolute Monocytes Absolute Eosinophils Absolute Basophils APTT Sodium Potassium Chloride Carbon Dioxide Anion Gap BUN Creatinine Estimated GFR/1.73 m2 Glucose Hemoglobin A1c 7.4 H Calcium Total Bilirubin Conjugated Bilirubin AST ALT Alkaline Phosphatase Troponin I Total Protein Albumin Objective Narrative Objective Narrative: Limited epowm-of-xgeb ultrasound of the heart was performed in parasternal long axis and short axis and apical four-chamber view as well as subcostal. Overall LV function appears to be normal. RV function appears to be normal and nondilated. Patient has mitral annular calcification and aortic valve calcification. No mitral regurgitation was detected. Aortic stenosis is seen.
--- NOTE | 2020-07-06 15:50 | PT.INIE ---
Date of service: 07/06/20 Time of Service: 15:05 PT Notes Visit Reasons: Syncope Physical Therapy Inpatient Initial Evaluation Date: 07/06/2020 Referring Doctor: Abdullahi Jackson MD PT Orders: PT CONSULT: Safety consult for discharge Precautions: Fall. Standard. Activity as tolerated. Patient Profile/Admitting Diagnosis: Magan is an 85-year-old male who presented to the ED on 07/05/2020 due to fainting spell while grocery shopping and to complaints of a pressure in chest. Patient is diagnosed with syncope and essential hypertension. Brain CT showed no acute intracranial process and neck MRA did not exhibit any dissection or significant stenosis. Referral to physical therapy services was made in order to assess safety of discharge to home. PMHX: Medical History (Updated 07/05/20 @ 19:23 by Abdullahi Jackson) BPH (benign prostatic hyperplasia) Essential hypertension Gout History of TIA (transient ischemic attack) Insulin-requiring or dependent type II diabetes mellitus Parkinsonism Surgical History (Updated 07/06/20 @ 15:22 by Abdullahi Jackson) History of phacoemulsification of cataract of both eyes with intraocular lens implantation History of vasectomy Social History/Home Situation: Lives alone in a private home with 2 steps to enter with a rail on 1 side. Verito and daughter provide support for patient as needed. Independent with all aspects of ADLs not needing any assistive ambulatory device nor adaptive equipment. Equipment Owned/DME: Single-point cane Subjective: Pleasant and cooperative. Agreeable to PT consult. Denies headache, chest pain, and dizziness throughout session. Denies pain. Objective: General Observation: Seated on bedside recliner. IV in right brachium. TEDS in B legs. Mental Status: Alert and oriented x4 Pain: None reported Vital Signs: Within normal limits as assessed by LOGGING SUPERINTENDENT Aidan before PT session ROM: Right Upper Extremity: Shoulder Flexion WFL. Shoulder abduction WFL. Elbow flexion WFL. Wrist flexion WFL. Opening and closing of hand WFL. Left Upper Extremity: Shoulder Flexion WFL. Shoulder abduction WFL. Elbow flexion WFL. Wrist flexion WFL. Opening and closing of hand WFL. Right Lower Extremity: Hip flexion WFL. Hip abduction WFL. Knee flexion WFL. Ankle dorsiflexion WFL. Ankle plantarflexion WFL. Left Lower Extremity: Hip flexion WFL. Hip abduction WFL. Knee flexion WFL. Ankle dorsiflexion WFL. Ankle plantarflexion WFL. Strength: Right Upper Extremity: Shoulder flexors 4/5. Shoulder abductors 4/5. Elbow flexors 5/5. Elbow extensors 5/5. Screen Printing Inspector strong. Left Upper Extremity: Shoulder flexors 4/5. Shoulder abductors 4/5. Elbow flexors 5/5. Elbow extensors 5/5. Screen Printing Inspector strong. Right Lower Extremity: Hip flexors 4/5. Hip abductors 5/5. Knee flexors 5/5. Knee extensors 5/5. Ankle dorsiflexors 5/5. Ankle plantarflexors 5/5. Left Lower Extremity:Hip flexors 4/5. Hip abductors 5/5. Knee flexors 5/5. Knee extensors 5/5. Ankle dorsiflexors 5/5. Ankle plantarflexors 5/5. Sensation: Intact as to pain and pressure on bilateral lower extremities. Did report some tingling in bilateral feet which he states he has had for quite a while now from his diabetes. Bed Mobility/Transfers: Rolling independent Supine to sit independent Sit to supine independent Sit to stand independent Stand to sit independent Bed to chair supervision Chair to bed supervision Gait: Guided patient through level surface ambulation of 250 feet without an assistive device with full weightbearing bilateral lower extremities requiring only standby assist without any complaints of dizziness, chest pain, and headache. Age-related reduction and lili. Step length and height decreased. No LOB. Balance: Static Sitting: Normal Dynamic Sitting: Normal Static Standing: Good Dynamic Standing: Fair Special Tests: Mobility Limitations Standardized Measure [facility] 6 clicks Basic Mobility Inpatient Short Form: Raw Score: 23 CMS Score: 11% deficit 4 stage balance test: Patient able to tolerate feet together and semi-tandem stance for 10 seconds without any issues however was not able to do so with full tandem as well as 1 legged stance indicating a risk for falls. Informed Consent/Education: Patient instructed in purpose of PT consult and plan of care. Assessment: Magan demonstrates balance deficits that may put him at risk for falls. He however he did not require an assistive device to perform level surface ambulation for 250 feet as above. We will plan on providing 1 more session with patient for longer distance ambulation and stairs training prior to a potential discharge tomorrow. Patient is assessed as a 63961 moderate complexity based on the following: History: 85-year-old male with impairment level findings, functional limitations, and past medical history as indicated above Examination: Demonstrable impairment in strength, balance, and mobility level with underlying impairments and functional limitations as documented above Presentation:Evolving Decision Makin moderate complexity Goals: Goals X1 week 1. Bed-Chair independent 2. Chair-Bed independent 3. Independent gait on level surface without use of assistive device for at least 300 feet without report of pain nor dyspnea 4. Independent stair negotiation while holding onto 1 rail for at least 3 steps without report of pain nor dyspnea 5. Independent with home exercise program 6. Good static and dynamic standing balance/tolerance Plan of Care/Treatment Plan: 1-2 treatment session prior to discharge for longer distance ambulation, HEP instruction, and stairs training. Plan of care has been reviewed with the CLEANER TOUCH UP WORKER providing the service under Physical Therapy direction. Initiate Physical Therapy intervention for strengthening, bed mobility, transfers, gait, stairs, balance training, use of assistive device. DISCHARGE RECOMMENDATIONS: Home when cleared by hospitalist. No skilled services needed at at home. No equipment needs at this time. TREATMENT CODE/TIME: 61800 x 20 minutes, 46297 x 25 minutes beginning at 15:05 PM. Thank you for the opportunity to participate in the care of this patient. Ashley Raman PT, DPT, CLT [facility] [place], [place]
[2020-07-06] MEDS: Atorvastatin 40 MG TAB 80 MG PO (21:03)
[2020-07-06] MEDS: amLODIPine 5 MG TAB PO (23:06)
[2020-07-07] VITALS (9 sets, daily range): BP systolic 121–149; BP diastolic 71–77; PULSE 61–74; RESP 16–18; TEMP 36.3–36.7; O2SAT 93–97
[2020-07-07] MEDS: Carbidopa 25/Levodopa 100 TAB PO ×6 (03:35→23:07)
[2020-07-07 06:54] LABS: HGB 13.3 g/dL (13.5-17.5); MCH 31.8 pg (27.0-33.0); MCHC 34.1 % (32.0-36.0); MCV 93.3 fL (80-95); MPV 12.4 fL (8.0-11.0); Platelet Count 144 10^3/uL (130-400); RBC 4.18 10^6/uL (4.36-5.78); RDW-SD 44.4 fL; WBC 7.92 10^3/uL (4.4-10.8)
[2020-07-07 07:12] LABS: ALT 16 U/L (16-63); AST 38 U/L (15-37); Albumin 3.3 g/dL (3.4-5.0); Alkaline Phosphatase 86 U/L (46-116); Bilirubin, Total 0.3 mg/dL (0.2-1.0); Total Protein 6.8 g/dL (6.4-8.2)
[2020-07-07 07:13] LABS: PTT Activated 42.3 sec (21.0-27.5)
[2020-07-07 07:28] LABS: Anion Gap 9.3 mmol/L (3-11); BUN 20 mg/dL (7-18); CO2 26.7 mmol/L (21.0-32.0); CREATININE 0.9 mg/dL (0.70-1.30); Calcium 8.9 mg/dL (8.5-10.1); Chloride 105 mmol/L (98-107); Glucose 63 mg/dL (74-106); NT-proBNP 1899 pg/mL (<300); Potassium 3.7 mmol/L (3.5-5.1); Sodium 141 mmol/L (136-145)
[2020-07-07 07:33] LABS: Troponin I 0.07 ng/mL (<0.06)
[2020-07-07] MEDS: Colchicine 0.6 MG TAB PO ×2 (08:22→20:11)
[2020-07-07] MEDS: Aspirin E.C. 81 MG TABEC PO (08:22)
[2020-07-07] MEDS: Famotidine 20 MG TAB PO (08:22)
[2020-07-07] MEDS: Clopidogrel 75 MG TAB PO (08:22)
[2020-07-07] MEDS: Metoprolol 12.5 MG TAB PO ×2 (08:23→20:10)
[2020-07-07] MEDS: Allopurinol 100 MG TAB PO (08:23)
[2020-07-07] MEDS: Tamsulosin 0.4 MG CAPCR PO (08:24)
[2020-07-07] MEDS: Magnesium Lactate-SR 84 MG TABCR PO ×2 (08:24→20:10)
[2020-07-07] MEDS: Potassium Chloride 20 MEQ TABCR PO ×2 (08:25→20:53)
--- NOTE | 2020-07-07 09:00 | RT.EKG_ITS ---
APPROVED REPORT Exam: Resting ECG Patient Location: I HR:68 bpm ECG Measurements Heart Rate 68 AXIS DC 201 P 23 QRSd 93 QRS -40 QT 406 T [id number] QTc 433 Conclusion Sinus rhythm...normal P axis, V-rate 60- 99 Left anterior fascicular block...axis(240,-40), init forces inf Borderline T abnormalities, diffuse leads...T flat/neg
--- NOTE | 2020-07-07 09:42 | PT.INTREAT ---
Date of service: 07/07/20 Time of Service: 09:05 PT Notes Visit Reasons: NSTEMI,SYNCOPE Inpatient Physical Therapy Treatment Note [facility] Date: 07/07/2020 PRECAUTIONS: Fall SUBJECTIVE: Magan is pleasant and agreeable to participating in PT. He reports that he feels good, and hopes to go home tomorrow. OBJECTIVE: PAIN: No complaints of pain BED MOBILITY/TRANSFERS Supine-sit: I with HOB flat Sit-supine: I with HOB flat Sit-stand: I Stand-sit: I Bed-Chair: S Chair-bed: S GAIT Assistive Device: No AD Weight bearing: Full Assist: SBA Distance: 350' Deviation: Small steps THEREX: Patient completed a lower extremity strengthening program, performed in a supine position, as per flow sheet. STAIRS: Up/down 3x4 and 2x6 using B rails and a step over pattern, independently ASSESSMENT: Patient tolerated session well, without complaint. He was able to tolerate a progression in gait distance although continues to demonstrate small steps. He continues to demonstrate independence with bed mobility and transfers at this time. PLAN: Continue with gait training and global strengthening for continued progression towards baseline level of function. TREATMENT CODE/TIME: 25 minutes; 15330, 59275 (09:05)
--- NOTE | 2020-07-07 11:30 | PHACLINREV_ITS ---
Pharmacy Admission Review - Admission Clinical Review (Last Updated 07/05/20 @ 19:23 by Abdullahi Jackson) NSTEMI (non-ST elevated myocardial infarction) (Acute) Parkinsonism (Acute) Insulin-requiring or dependent type II diabetes mellitus (Acute) Essential hypertension (Acute) Penicillins Allergy (Severe, Unverified 07/05/20 12:09) Skin Rash Height 5 ft 5 in Weight 81 kg - Comments Comments/Follow Ups: Cardiac workup at discharge, on Plavix, ASA, Statin. Working with PT, possible discharge Thursday - Renal Dosing Renal Dosing: BUN 20 mg/dL (7-18) H 07/07/20 06:20 Creatinine 0.9 mg/dL (0.70-1.30) 07/07/20 06:20 Medications needing adjustments: Reviewed (CrCl~54ml/min, meds ok) - Anticoagulation Anticoagulation: Hgb 13.3 g/dL (13.5-17.5) L 07/07/20 06:20 Hct 39.0 % (40.0-50.0) L 07/07/20 06:20 Plt Count 144 10^3/uL (130-400) 07/07/20 06:20 Creatinine 0.9 mg/dL (0.70-1.30) 07/07/20 06:20 Therapeutic Anticoagulation: Reviewed Medications: Heparin (Heparin infusion scheduled to stop today @ 8pm (48 hours treatment)) - Opiate Usage Evaluate Pain Scale/Pains Meds: N/A - Relevant Labs Sodium 141 mmol/L (136-145) 07/07/20 06:20 Potassium 3.7 mmol/L (3.5-5.1) 07/07/20 06:20 Chloride 105 mmol/L (98-107) 07/07/20 06:20 Magnesium 2.1 mg/dL (1.8-2.4) 07/05/20 10:35 Electrolytes, C-Reactive P, ESR: Reviewed (Has oral Magnesium and Potassium, Probnp elevated @1899, Troponin's trended down) - DM Control DM Control: Glucose 63 mg/dL (74-106) L D 07/07/20 06:20 Hemoglobin A1c 7.4 % (<5.7) H 07/06/20 06:40 Finger Stick Blood Glucose 68 Finger Stick Blood Glucose 68 Finger Stick Blood Glucose 171 Finger Stick Blood Glucose 68 Insulin Dosing: Reviewed (Low BS, adjusted Levemir and Novolog scale, dc'd Metformin) - Heart Failure/AZ Heart Failure/AZ: Troponin I 0.07 ng/mL (<0.06) H 07/07/20 06:20 NT-Pro-B Natriuret Pep 1899 pg/mL (<300) H 07/07/20 06:20 EF%, LILIAN's, B-Blockers, Diuretics: Reviewed (Amlodipine, Metoprolol tartrate (no hold parameters)) - BP Control BP Control: Blood Pressure 149/77 Blood Pressure 124/71 Blood Pressure 130/71 If elevated: Reviewed - Qtc Review If Elevated: Reviewed (QTC 434, Arrhythmias) - Current meds Current Medication Order Review: Reviewed (Has both Avodart and Flomax for BPH, Not sure Sinemet should be dosed Q4h ATC...confirmed with patient, as he takes it in the middle of the night when he gets up to use the bathroom, no retail pha rmacy records. Allopurinol and Colchicine for gout)
[2020-07-07] MEDS: Insulin Aspart 300 UNITS/3 ML PEN SC ×4 (11:49→16:58)
--- NOTE | 2020-07-07 12:07 | W.PM.PROGNOT ---
Date of Service Date of service: 07/07/20 Time of Service: 12:07 Assessment and Plan Assessment and plan (1) NSTEMI (non-ST elevated myocardial infarction): Start date: 07/07/20 Start time: 12:39 Status: Acute Assessment and plan: Transient rise in his troponin which peaked at 0.21 and is now down to 0.07. Patient remains pain-free and denies any dyspnea. Heparin gtt dcd at 2000 tonight Possible d/c home tomorrow on 30 day event recorder Continue dual antiplatelet therapy with Plavix and aspirin along with high-dose atorvastatin. Cardiology referral (2) Syncope: Start date: 07/07/20 Start time: 12:42 Status: Chronic Assessment and plan: Seizure and CVA r/o will need recorder on d/c as above Qualifiers: Syncope type: unspecified Qualified Code(s): R55 - Syncope and collapse (3) Essential hypertension: Start date: 07/07/20 Start time: 12:43 Status: Acute Assessment and plan: Continue amlodipine 5 mg daily which he was on at home. Continue Lopressor 12.5 mg p.o. twice daily. No arrythmia thus far, continue to (4) Insulin-requiring or dependent type II diabetes mellitus: Start date: 07/07/20 Start time: 12:45 Status: Acute Assessment and plan: Continue basal bolus insulin with his home dose of Levemir along with carb coverage and sliding scale. (5) Parkinsonism: Start date: 07/07/20 Start time: 12:45 Status: Acute Assessment and plan: Continue home dose of Sinemet. Qualifiers: Parkinsonism type: Parkinson's disease Qualified Code(s): G20 - Parkinson's disease (6) BPH (benign prostatic hyperplasia): Start date: 07/07/20 Start time: 12:45 Status: Chronic Assessment and plan: Continue home dose of Avodart above case discussed with Dr. Romero Subjective Subjective Patient reports: no new complaints Interval history since last seen: Doing well, sitting up in chair. No new complaints. Will d/c heparin gtt tonight. Repeat EKG no change. continue telemetry he will need 30 day cardiac event recorder on discharge home. Patient states that echo preformed by Provider yesterday. Possible discharge home in am. Denies CP, SOB, N/v/D Exam Narrative Exam Narrative: Elderly male who is alert and oriented person place time circumstance sitting up watching TV. Neck reveals bilateral carotid bruits is previously noted on admission H&P. Lungs are clear Heart is regular with a harsh crescendo decrescendo systolic murmur over the aortic outflow tract as well as a musically harsh systolic murmur over the apex. GI bs heard in all quad Skin is in tact Able to move all extremities without any difficulty, no clubbing, cyanosis or edema. Objective Last Vital Signs Temp 36.7 C 07/07/20 11:10 Pulse 62 07/07/20 11:10 Resp 17 07/07/20 11:10 BP 149/77 H 07/07/20 11:10 Pulse Ox 96 07/07/20 11:10 Laboratory Results - last 24 hr 07/07/20 07/07/20 07/07/20 06:20 06:20 06:20 WBC 7.92 RBC 4.18 L Hgb 13.3 L Hct 39.0 L MCV 93.3 MCH 31.8 MCHC 34.1 RDW 13.0 Plt Count 144 MPV 12.4 H APTT 42.3 H Sodium 141 Potassium 3.7 Chloride 105 Carbon Dioxide 26.7 Anion Gap 9.3 BUN 20 H Creatinine 0.9 Estimated GFR/1.73 m2 >= 60.00 Glucose 63 L D Calcium 8.9 Total Bilirubin Conjugated Bilirubin AST ALT Alkaline Phosphatase Troponin I 0.07 H NT-Pro-B Natriuret Pep 1899 H Total Protein Albumin 07/07/20 06:20 WBC RBC Hgb Hct MCV MCH MCHC RDW Plt Count MPV APTT Sodium Potassium Chloride Carbon Dioxide Anion Gap BUN Creatinine Estimated GFR/1.73 m2 Glucose Calcium Total Bilirubin 0.3 Conjugated Bilirubin 0.10 AST 38 H ALT 16 Alkaline Phosphatase 86 Troponin I NT-Pro-B Natriuret Pep Total Protein 6.8 Albumin 3.3 L
--- NOTE | 2020-07-07 18:09 | PDOC.CMPRO ---
- If Service Date Differs Date of service: 07/07/20 Time of Service: 18:09 Care Management Progress Note S/O: Magan was sitting up in bed when CM met with him. He asked CM if she brought wine for him. Yesterday he had been joking about drinking and buying wine in different states. Magan was pleasant and seemed in good spirits. He stated that he is still not sure when he will be discharged. He experienced a transient rise in troponins but without chest pain or symptoms. A heparn drip was started yesterday but will be discontinued tonight. He will need a 30 day cardiac event recorder at discharge as well as follow up with cardiology. A: Magan is an 85 year old man admitted on 07/05/20 with syncope P:Anticipate Magan will be discharged home with no new services when medically cleared by provider. He will follow up with his PCP, Lighter Captain and discharge plan of care. he will need a 30 day hall monitor. Magan's , Elva, will drive him home via private vehicle when ready. CM will continue to support patient and discharge planning considerations
[2020-07-07] MEDS: Atorvastatin 40 MG TAB 80 MG PO (20:10)
[2020-07-07] MEDS: Normal Saline Flush 10 ML SYR IVP (21:18)
[2020-07-07] MEDS: amLODIPine 5 MG TAB PO (23:07)
[2020-07-08] MEDS: Carbidopa 25/Levodopa 100 TAB PO ×3 (03:11→11:53)
[2020-07-08 03:36] VITALS: BP 106/59; PULSE 72; RESP 20; TEMP 37.1; O2SAT 98
[2020-07-08 07:13] LABS: PTT Activated 23.4 sec (21.0-27.5)
[2020-07-08 07:16] LABS: Anion Gap 10.2 mmol/L (3-11); BUN 18 mg/dL (7-18); CO2 23.8 mmol/L (21.0-32.0); CREATININE 0.9 mg/dL (0.70-1.30); Calcium 8.7 mg/dL (8.5-10.1); Chloride 105 mmol/L (98-107); Glucose 91 mg/dL (74-106); Sodium 139 mmol/L (136-145)
[2020-07-08 07:30] VITALS: PULSE 66
[2020-07-08 07:53] VITALS: BP 136/75; PULSE 67; RESP 17; TEMP 36.8; O2SAT 98
[2020-07-08] MEDS: Insulin Aspart 300 UNITS/3 ML PEN SC ×2 (08:50→11:54)
[2020-07-08] MEDS: Tamsulosin 0.4 MG CAPCR PO (08:51)
[2020-07-08] MEDS: Famotidine 20 MG TAB PO (08:51)
[2020-07-08] MEDS: Colchicine 0.6 MG TAB PO (08:51)
[2020-07-08] MEDS: Potassium Chloride 20 MEQ TABCR PO (08:51)
[2020-07-08] MEDS: Aspirin E.C. 81 MG TABEC PO (08:51)
[2020-07-08] MEDS: Metoprolol 12.5 MG TAB PO (08:51)
[2020-07-08] MEDS: Magnesium Lactate-SR 84 MG TABCR PO (08:52)
[2020-07-08] MEDS: Clopidogrel 75 MG TAB PO (08:52)
[2020-07-08] MEDS: Allopurinol 100 MG TAB PO (08:52)
--- NOTE | 2020-07-08 09:52 | CMDISCH_ITS ---
- If Service Date Differs Date of service: 07/08/20 Time of Service: 09:52 LACE Index Scoring Tool - Questions: Length of Stay (in days): 2 Acuity (Admit via E.D.?): Yes Comorbidities: Cerebrovascular Disease, Diabetes w/o Complication E.D. Visits: 1 - Answers: Total Score: 8 Risk of Readmission: Low Risk Care Management Discharge Reason for Hospitalization: Syncope. Discharge Plan: Magan will be discharged home with no new services however he will have a 14 day threat monitoring analyst. He will follow up with his PCP and discharge plan of care as directed. His , Elva, will drive him home via private vehicle. Patient/Family Education Needs: Discharge instructions, limitations, follow up plan, including Ask Me Three and self management.
--- NOTE | 2020-07-08 12:18 | PT.INTREAT ---
PT Notes Visit Reasons: NSTEMI,SYNCOPE Inpatient Physical Therapy Treatment Note [facility] Date: 07/08/20 SUBJECTIVE: I can now walk around my room without having to call for a nurse. I am hoping to go home today. OBJECTIVE: [] BED MOBILITY/TRANSFERS Sit-stand: I Stand-sit: I Bed-Chair: I Chair-bed: I GAIT Assistive Device: no AD Weight bearing: full Assist: SBA Distance: approx 400' Deviation:no LOB STAIRS: up and down 3x4 and 2x6 steps without hand rail, using step over gait pattern and SBA ASSESSMENT: tolerated session well. Is independent with all transfers safely including stairs. PLAN: will continue PT POC, possible d/c today per pt. TREATMENT CODE/TIME: 20 min [id number].
--- NOTE | 2020-07-08 12:29 | W.PM.DS.N ---
Date of service: 07/08/20 Time of Service: 12:29 DS: Diagnosis Discharge Diagnosis (1) NSTEMI (non-ST elevated myocardial infarction): Status: Acute (2) Syncope: Status: Chronic (3) Essential hypertension: Status: Acute (4) Insulin-requiring or dependent type II diabetes mellitus: Status: Acute (5) Parkinsonism: Status: Acute (6) BPH (benign prostatic hyperplasia): Status: Chronic Discharge Plan Disposition Patient Disposition: HOME Condition: Stable Discharge Details Reason For Visit: NSTEMI,SYNCOPE Admit Date/Time: 07/06/20 19:32 Admit Provider: Abdullahi Jackson Attending Provider: Abdullahi Jackson Primary Care Provider: Rahel Merino Hospital Course Hospital Course: This is 85-year-old male with a history of parkinsonism, essential hypertension, hyperlipidemia, diabetes mellitus type 2 requiring insulin and previous TIAs presented via EMS from home after sustaining a syncopal spell witnessed by his . she reportedly states that he was pulseless with no respirations and was blue. CPR was no initiated but she pounded his back or chest several times and he ultimately came to. work up in the ED was initially unrevealing with a normal troponin, imagining and EKG. He was admitted to the hospital for further evaluation of syncope and monitoring for any cardiac arrhythmias and to rule out stroke/TIA, seizure disorder. He experienced a rise in his troponin which peaked at 0.21 before trending downward. He was initiated on dual antiplatelet therapy with Plavix and aspirin along with high-dose atorvastatin and metoprolol and received a heparin drip for 48 hours. He was tolerating metoprolol 12.5 mg po bid and will be discharged on metoprolol succinate 25 mg po daily, pulse in the 60's with SBP 130's. His syncopal work up was unrevealing, echocardiography unavailable, and it is believed his syncope was most likely a cardiac arrhythmic event. MRI of the brain shows atrophy and white matter changes consistent with small vessel disease and a questionable area of a small focus of old hemorrhage in the left midbrain. MRI of the brain showed normal examination of the modoc of [place]. MRA of the cervical vessels showed no evidence of dissection or occlusion or stenosis. Carotid ultrasound showed mild to moderate bilateral calcific plaques in the common carotid bulbs and internal and external carotid arteries with no hemodynamically significant stenosis. EEG was performed and showed no epileptiform activity. Telemetry overnight has demonstrated sinus arrhythmia with notched P waves, PACs and PVCs including ventricular couplets. There were no runs of ventricular tachycardia. He is referred to cardiology and cardiac event recorder was placed on discharge. discharge discussed with DR Bernabe. Home Meds and New Rx's Prescriptions: New atorvastatin [Lipitor] 40 mg Tablet 80 mg PO QPM Qty: 30 RF: 0 aspirin 81 mg Tablet,Delayed Release (Dr/Ec) 81 mg PO DAILY Qty: 30 RF: 0 metoprolol succinate 25 mg tablet extended release 24 hr 25 mg PO DAILY Qty: 30 RF: 0 Continued metformin 500 mg Tablet 500 mg PO BID RF: 0 clopidogrel [Plavix] 75 mg Tablet 75 mg PO DAILY RF: 0 amlodipine 5 mg Tablet 5 mg PO HS RF: 0 allopurinol 100 mg Tablet 100 mg PO DAILY RF: 0 potassium chloride [Klor-Con M20] 20 mEq Tablet,Er Particles/Crystals 20 meq PO BID RF: 0 famotidine 20 mg Tablet 20 mg PO BID RF: 0 tamsulosin 0.4 mg Capsule 0.4 mg PO DAILY RF: 0 colchicine [Colcrys] 0.6 mg Tablet 0.6 mg PO BID RF: 0 carbidopa-levodopa 25-100 mg Tablet 1 tab PO Q4H RF: 0 dutasteride 0.5 mg Capsule 0.5 mg PO DAILY RF: 0 Levemir U-100 Insulin 100 unit/mL Solution 50 unit SUBCUT QPM RF: 0 Levemir U-100 Insulin 100 unit/mL Solution 65 unit SUBCUT QAM RF: 0 magnesium chloride 64 mg magnesium Tablet 84 mg PO BID RF: 0 Discontinued pravastatin 40 mg Tablet 40 mg PO QHS RF: 0 Discharge Instructions Instructions: Heart Attack (DC) Additional Instructions: wear quality assurance monitor body as directed. take all medications as directed. return for new or worsening symptoms Stand Alone Forms: Nursing Discharge Form Referrals: Rahel Merino [Primary Care Provider] - (Please call Thursday to make a follow up appointment. ) Theodore Gasca MD [ CONSULTING PHYSICIAN] - (Please call Thursday to make an appointment. ) Activity:: Activity as Tolerated Equipment/Supplies:: No Equipment Needed Diet:: As Tolerated Discharge Orders Discharge Orders: Discharge Order (Routine); Ordered 07/08/20 Ordered By: Yvrose Elizalde Other Ambulatory Orders: Cardiac Event Recorder (Outpt) (ONCE) Location: None Selected Ordered By: Yvrose Elizalde Discharge Data Discharge Date/Time-TO BE ENTERED AT DEPARTURE: 07/08/20 14:19 DS: Summary Time Spent with Patient providing and/or coordinating discharge services: Greater than 30 minutes Status at Discharge Functional status at discharge: independent ambulation Overall status at discharge: patient is back to baseline Mental Status: mental status grossly normal Speech and Movement: speech and movement normal Mood: congruent mood Affect: normal affect Exam Narrative Exam Narrative: Elderly male in no acute distress, pink warm dry and well perfused alert and oriented person place time circumstance. Lungs are clear, respirations even and unlabored Heart regular rate and rhythm, positive systolic murmur GI soft and benign Skin is intact with no rashes or lesions Able to move all extremities without any difficulty, no edema. Psych Mental Status: mental status grossly normal Speech and Movement: speech and movement normal Mood: congruent mood Affect: normal affect DS: Data Vitals/I&O Vitals and I&O: Vital Signs Temperature 36.8 C 07/08/20 07:53 Temperature Source Temporal Artery Scan 07/08/20 07:53 Pulse 67 07/08/20 07:53 Pulse Rhythm Regular 07/08/20 11:15 Pulse 87 07/05/20 12:01 Respiratory Rate 17 07/08/20 07:53 Respiratory Effort Non-Labored 07/08/20 11:15 Respiratory Depth Normal 07/08/20 11:15 Respiratory Pattern Normal 07/08/20 11:15 Blood Pressure 136/75 07/08/20 07:53 Blood Pressure Mean 81 07/05/20 12:00 Blood Pressure Position Sitting 07/05/20 10:52 Pulse Oximetry 98 07/08/20 07:53 Oxygen Delivery Method Room Air 07/08/20 07:53 Oxygen Flow Rate 0 07/08/20 07:53 Pain Level 0 07/08/20 07:53 Intake & Output 07/07/20 07/08/20 07/08/20 23:59 11:59 23:59 Intake Total 740 / 990 360 / 360 Output Total 750 / 1750 900 / 900 Balance -10 / -760 -540 / -540 Intake: IV 250 / 250 Oral 490 / 740 360 / 360 Output: Urine 750 / 1750 900 / 900 Other: Urine Color Yellow Yellow Urine Appearance Clear Clear Urine Odor Normal Normal Comment output collected in the hat Stool Size Moderate Stool Characteristics Formed Brown Voiding Methods Toilet Toilet Data Completed and Pending Labs on day of discharge: Labs from last 24 hours 07/08/20 07/08/20 06:35 06:35 APTT 23.4 Sodium 139 Potassium 4.0 Chloride 105 Carbon Dioxide 23.8 Anion Gap 10.2 BUN 18 Creatinine 0.9 Estimated GFR/1.73 m2 >= 60.00 Glucose 91 Calcium 8.7 PFSH Medical History (Updated 07/06/20 @ 20:04 by Abdullahi Jackson) BPH (benign prostatic hyperplasia) Essential hypertension Gout History of TIA (transient ischemic attack) Insulin-requiring or dependent type II diabetes mellitus Parkinsonism Surgical History (Updated 07/06/20 @ 15:22 by Abdullahi Jackson) History of phacoemulsification of cataract of both eyes with intraocular lens implantation History of vasectomy Social History Smoking/Tobacco Use Status: Former Tobacco Use Smoking risk assessment performed?: Yes Alcohol Intake: current Alcohol Intake frequency: 0-2 drinks per day Alcohol type: wine Drug use: Never Substance use type: does not use Do you feel safe at home: Yes Do you feel safe in your relationship?: Yes
--- NOTE | 2020-07-09 14:29 | PT.INDS ---
Date of service: 07/09/20 Time of Service: 14:29 PT Notes Visit Reasons: NSTEMI,SYNCOPE Physical Therapy Inpatient Discharge Summary Date: 07/09/2020 Dates of service: 07/06/2020 through 07/08/2020 This is a clinical summary of care provided on the duration of dates listed above. No charge was made in the completion of this documentation. Referring Doctor: Abdullahi Jackson MD PT Orders: PT CONSULT: Safety consult for discharge Precautions: Fall. Standard. Activity as tolerated. Patient Profile/Admitting Diagnosis: Magan is an 85-year-old male who presented to the ED on 07/05/2020 due to fainting spell while grocery shopping and to complaints of a pressure in chest. Patient is diagnosed with syncope and essential hypertension. Brain CT showed no acute intracranial process and neck MRA did not exhibit any dissection or significant stenosis. Referral to physical therapy services was made in order to assess safety of discharge to home. PMHX: Medical History (Updated 07/05/20 @ 19:23 by Abdullahi Jackson) BPH (benign prostatic hyperplasia) Essential hypertension Gout History of TIA (transient ischemic attack) Insulin-requiring or dependent type II diabetes mellitus Parkinsonism Surgical History (Updated 07/06/20 @ 15:22 by Abdullahi Jackson) History of phacoemulsification of cataract of both eyes with intraocular lens implantation History of vasectomy Social History/Home Situation: Lives alone in a private home with 2 steps to enter with a rail on 1 side. Verito and daughter provide support for patient as needed. Independent with all aspects of ADLs not needing any assistive ambulatory device nor adaptive equipment. Equipment Owned/DME: Single-point cane Subjective: NT. See most recent DIRECTOR TEEN [employer] notes. Objective: General Observation: NT. See most recent [employer] notes. Mental Status: NT. See most recent [employer] notes. Pain: NT. See most recent [employer] notes. Vital Signs: NT. See most recent DIRECT[employer] notes. ROM: Right Upper Extremity: Shoulder Flexion WFL. Shoulder abduction WFL. Elbow flexion WFL. Wrist flexion WFL. Opening and closing of hand WFL. Left Upper Extremity: Shoulder Flexion WFL. Shoulder abduction WFL. Elbow flexion WFL. Wrist flexion WFL. Opening and closing of hand WFL. Right Lower Extremity: Hip flexion WFL. Hip abduction WFL. Knee flexion WFL. Ankle dorsiflexion WFL. Ankle plantarflexion WFL. Left Lower Extremity: Hip flexion WFL. Hip abduction WFL. Knee flexion WFL. Ankle dorsiflexion WFL. Ankle plantarflexion WFL. Strength: Right Upper Extremity: Shoulder flexors 4/5. Shoulder abductors 4/5. Elbow flexors 5/5. Elbow extensors 5/5. Manager Philosophy strong. Left Upper Extremity: Shoulder flexors 4/5. Shoulder abductors 4/5. Elbow flexors 5/5. Elbow extensors 5/5. Manager Philosophy strong. Right Lower Extremity: Hip flexors 4/5. Hip abductors 5/5. Knee flexors 5/5. Knee extensors 5/5. Ankle dorsiflexors 5/5. Ankle plantarflexors 5/5. Left Lower Extremity:Hip flexors 4/5. Hip abductors 5/5. Knee flexors 5/5. Knee extensors 5/5. Ankle dorsiflexors 5/5. Ankle plantarflexors 5/5. Sensation: Intact as to pain and pressure on bilateral lower extremities. Did report some tingling in bilateral feet which he states he has had for quite a while now from his diabetes. Bed Mobility/Transfers: Rolling independent Supine to sit independent Sit to supine independent Sit to stand independent Stand to sit independent Bed to chair independent Chair to bed independent Gait: Guided patient through level surface ambulation of 400 feet without an assistive device with full weightbearing bilateral lower extremities requiring only standby assist without any complaints of dizziness, chest pain, and headache. Age-related reduction and lili. Step length and height decreased. No LOB. Balance: Static Sitting: Normal Dynamic Sitting: Normal Static Standing: Good Dynamic Standing: Fair L Assessment: Patient demonstrates improved functional mobility level as a result of this episode of care as evidenced by mobility levels above and goal status below. Patient will benefit from home health PT services in order to achieve highest mobility level without an assistive device. Goals: Goals X1 week 1. Bed-Chair independent MET 2. Chair-Bed independent MET 3. Independent gait on level surface without use of assistive device for at least 300 feet without report of pain nor dyspnea NOT MET 4. Independent stair negotiation while holding onto 1 rail for at least 3 steps without report of pain nor dyspnea NOT MET 5. Independent with home exercise program NOT MET 6. Good static and dynamic standing balance/tolerance NOT MET DISCHARGE RECOMMENDATIONS: Home when cleared by hospitalist. No skilled services needed at at home. No equipment needs at this time. TREATMENT CODE/TIME: PA Thank you for the opportunity to participate in the care of this patient. Ashley Raman PT, DPT, CLT [facility] [place], [place]
--- NOTE | 2020-08-02 14:55 | ZIOP_ITS ---
Date of service: 08/02/20 Time of Service: 14:56 14 Day [employer]man Referring Provider:: Abdullahi Jackson Indications:: Syncope Note: This is a 14-day ambulatory monitor, ordered for syncope Predominant rhythm was sinus with an average heart rate of 70. Minimum was 52, maximum 105 There were rare atrial premature beats, atrial pairs, atrial triplets There were occasional ventricular ectopic beats, rare couplets and brief trigem iny. there were several ventricular triplets There was a 7 beat run of accelerated idioventricular rhythm, rate approximately 70 There was no atrial fibrillation, no pauses greater than 3 seconds, no high- grade AV block
== END 2020-07-08 14:19 | disposition home or self-care (01) | DRG 282 ==
LOC: ER 12:36 → MS 12:41
PROVIDERS: Family Medicine; Nurse Practitioner Family; Admitting Provider Internal Medicine; Emergency Provider Physician Assistant; PCP Family Medicine; Visit Provider Internal Medicine
DX: I21.4 Non-ST elevation (NSTEMI) myocardial infarction (principal); R55 Syncope and collapse; G20 Parkinson's disease; I10 Essential (primary) hypertension; E78.5 Hyperlipidemia, unspecified; Z79.4 Long term (current) use of insulin; E11.9 Type 2 diabetes mellitus without complications; Z86.73 Personal history of transient ischemic attack (TIA), and cerebral infarction without residual deficits; N40.0 Benign prostatic hyperplasia without lower urinary tract symptoms; M10.9 Gout, unspecified; Z87.891 Personal history of nicotine dependence; I49.8 Other specified cardiac arrhythmias
CPT/HCPCS: 36415; 70544; 70547; 80048; 80053; 80076; 85027; 87637; 93005; 93246; 95819; 97110; 97162; 97530; 99220; 99233; 99239; 99285; 70450; 70551; 71045; 83036; 83735; 83880; 84484; 85025; 85379; 85730; 93010; 93880; G0378; J3490

== ENCOUNTER 2020-08-02 14:55 | Outpatient (CLI) | payer MEDICARE, SELFPAY | END 2020-08-02 14:56 | LOC: CARDO 08-06 16:02 | PROVIDERS: PCP Family Medicine; Referring Provider Internal Medicine; Visit Provider Internal Medicine Cardiovascular Disease | DX: R55 Syncope and collapse (principal); I49.3 Ventricular premature depolarization; I49.8 Other specified cardiac arrhythmias | CPT/HCPCS: 93248 ==